=== PATIENT | male | born 2000 | race African-American/Black ===

== ENCOUNTER 2018-12-31 11:26 | Emergency (ER) | payer MEDICAID ==
[~2018-12-31] VITALS: Ht 175.3 cm; Wt 77.1 kg
[2018-12-31 11:32] VITALS: BP 160/68
[2018-12-31 11:58] LABS: BILIRUBIN,URINE NEGATIVE (NEG); CLARITY,URINE CLOUDY; COLOR,URINE YELLOW; NITRITE,URINE NEGATIVE (NEG); PROTEIN,URINE NEGATIVE (NEG-TRACE)
[2018-12-31] MEDS ORDERED: AZITHROMYCIN 250 MG TABLET. PO ONE (12:00)
[2018-12-31] MEDS ORDERED: metroNIDAZOLE 500 MG TABLET PO ONE (12:00)
[2018-12-31] MEDS ORDERED: cefTRIAXone IM 250 MG VIAL IM ONE (12:00)
--- NOTE | 2018-12-31 12:02 | PHYS DOC ---
Past Medical History Past Medical History: Hypertension Past Surgical History: No Surgical History Additional Information: SMOKES 1 CIGARETTE EVERY 2 WEEKS Alcohol Use: None Drug Use: None Adult General Chief Complaint Chief Complaint: SEXUALLY TRANSMITTED DISEASE HPI HPI Patient is a 18 year old male with history of hypertension who presents to ED today concerned he could probably an STD. Patient is complaining of dysuria and penile discharge for 4 days. Review of Systems Review of Systems Constitutional: Denies fever or chills [] GI: Denies abdominal pain, nausea, vomiting, bloody stools or diarrhea [] : Reports dysuria and penile discharge, denies hematuria [] Musculoskeletal: Denies back pain or joint pain [] Integument: Denies rash or skin lesions [] Neurologic: Denies headache, focal weakness or sensory changes [] All other systems were reviewed and found to be within normal limits, except as documented in this note. Current Medications Current Medications Current Medications Medications (Trade) Dose Ordered Sig/Dagoberto Start Time Stop Time Status Last Admin Dose Admin Azithromycin (Zithromax) 1,000 mg 1X ONCE 12/31/18 12:00 12/31/18 12:01 Ceftriaxone Sodium (Rocephin Im) 250 mg 1X ONCE 12/31/18 12:00 12/31/18 12:01 Metronidazole (Flagyl) 2,000 mg 1X ONCE 12/31/18 12:00 12/31/18 12:01 Allergies Allergies Allergies Coded Allergies Type Severity Reaction Last Updated Verified No Known Drug Allergies 12/31/18 No Physical Exam Physical Exam Constitutional: Well developed, well nourished, no acute distress, non-toxic appearance. [] Abdomen: Bowel sounds normal, soft, no tenderness, no masses, no pulsatile masses. [] Skin: Warm, dry, no erythema, no rash. [] Back: No tenderness, no CVA tenderness. [] Extremities: No tenderness, no cyanosis, no clubbing, ROM intact, no edema. [] Neurologic: Alert and oriented X 3, normal motor function, normal sensory function, no focal deficits noted. [] Psychologic: Affect normal, judgement normal, mood normal. [] Current Patient Data Vital Signs Vital Signs Date Time Temp Pulse Resp B/P (MAP) Pulse Ox O2 Delivery O2 Flow Rate FiO2 12/31/18 11:32 98.9 72 16 160/68 (98) 97 Room Air 98.9 EKG EKG [] Radiology/Procedures Radiology/Procedures [] Course & Med Decision Making Course & Med Decision Making Pertinent Labs and Imaging studies reviewed. (See chart for details) This is a 18-year-old male patient presenting to the ED today with STD concern, patient was treated in the ED education provided. [place] Disclaimer Dragon Disclaimer This electronic medical record was generated, in whole or in part, using a voice recognition dictation system. Departure Departure Impression: Primary Impression: Concern about STD in male without diagnosis Disposition: 01 HOME, SELF-CARE Condition: STABLE Referrals: NO PCP (PCP) follow up with the health department as needed Patient Instructions: Sexually Transmitted Disease Additional Instructions: You were treated in the emergency room for sexually transmitted diseases. Please do not have any intercourse for 1 week. Please contact all your sex partners, let them know you were treated for STDs and ask them to seek treatment too. Use protection at all times. CHRISSY ALFARO APRN Dec 31, 2018 12:02
[2018-12-31 12:13] LABS: BACTERIA,URINE FEW /HPF (0-FEW); WBC,URINE TNTC /HPF (0-4)
== END 2018-12-31 12:19 | disposition home or self-care (01) ==
LOC: ER 11:26
DX: Z20.2 Contact with and (suspected) exposure to infections with a predominantly sexual mode of transmission (principal); I10 Essential (primary) hypertension; F17.210 Nicotine dependence, cigarettes, uncomplicated
CPT/HCPCS: 81001; 87491; 87591; 96372; 99284; J0696; Q0144; 99283